=== PATIENT | male | born 1995 | race Caucasian/White ===

== ENCOUNTER 2018-02-10 17:11 | Emergency (ER) | payer OTHER ==
[2018-02-10] MEDS: IBUPROFEN 600 MG TAB PO (20:24)
[2018-02-10] MEDS: CEPHALEXIN 500 MG CAP PO (20:24)
== END 2018-02-10 20:52 | disposition home or self-care (01) ==
LOC: M ED 17:11
DX: S60.221A Contusion of right hand, initial encounter (principal); W19.XXXA Unspecified fall, initial encounter; Y92.410 Unspecified street and highway as the place of occurrence of the external cause; F17.200 Nicotine dependence, unspecified, uncomplicated
CPT/HCPCS: 73130

== ENCOUNTER 2018-10-27 13:21 | Emergency (ER) | payer OTHER ==
[~2018-10-27] VITALS: Ht 185.4 cm; Wt 77.3 kg
[2018-10-27 13:21] VITALS: BP 115/63
[~2018-10-27 13:21] MED LIST: AUGM875T28 PO
--- NOTE | 2018-10-27 13:56 | REP ---
LEFT RIB SERIES: Three views of the left ribs were performed. No fracture or bone lesion is seen. The left lung is clear with no evidence of pneumothorax. IMPRESSION: No evidence of left rib fracture. Electronically Signed by Vladimir Narvaez MD 10/27/2018 05:28 P
[2018-10-27] MEDS ORDERED: IBUP-1022 PO (14:06)
[2018-10-27] MEDS ORDERED: NORCOTAB PO (14:06)
== END 2018-10-27 14:29 | disposition home or self-care (01) ==
LOC: M ED 13:21
DX: S20.219A Contusion of unspecified front wall of thorax, initial encounter (principal); Y04.0XXA Assault by unarmed brawl or fight, initial encounter

== ENCOUNTER 2019-01-21 10:50 | Emergency (ER) | payer OTHER ==
[~2019-01-21] VITALS: Ht 188 cm; Wt 75.3 kg
[~2019-01-21 10:50] MED LIST changes: +HYDR-3715 PO; +IBUP-1022 PO
[2019-01-21] MEDS ORDERED: ONDANSETRON 4 MG ORAL DISINTEGRATING TAB (Q0162 PER 1MG) PO ONE (11:30)
--- NOTE | 2019-01-21 11:56 | REP ---
Head CT without contrast: History: Head injury. Neck pain. Comparison study: No comparison study. CT findings: Bone window settings demonstrate an intact bony calvarium. There is no evidence of skull fracture or incidental bony calvarial lesion. The visualized paranasal sinuses appear clear. No intraorbital abnormality is seen. On soft tissue window setting images; the lateral, third, and fourth ventricles are normal in size and position. Narvaez-white differentiation pattern is normal above and below the tentorium. There are is no evidence of intracranial hemorrhage. No mass, edema, infarction, or midline shift is seen. No extra-axial fluid collection is appreciated. Impression: Negative noncontrast head CT. Electronically Signed by Ba Luciano MD 01/21/2019 11:55 A
--- NOTE | 2019-01-21 12:07 | REP ---
CT study of the cervical spine without contrast: History: Head injury. Neck pain. Technique: Helical scanning is acquired and overlapping 2 mm high resolution axial images were generated and reviewed at bone and soft tissue window settings. Coronal and sagittal multiplanar re-formations images are generated. CT findings: There is some straightening of the normal cervical lordosis. Coronal multiplanar re-formation images demonstrate a dextroconvex curvature. 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 There is no evidence of cervical spine element fracture. No skull base fracture is seen. Cervical vertebral body heights are preserved. Alignment is normal. Facet joints are normally aligned bilaterally at each cervical level on multiplanar re-formations images. There is no evidence of intraspinal or paraspinal hematoma. No extra vertebral abnormality is seen. Impression: Negative CT study of the cervical spine without contrast. No fracture seen. Electronically Signed by Ba Luciano MD 01/21/2019 11:58 A
[2019-01-21] MEDS ORDERED: ONDA4TAB6 PO (12:31)
[2019-01-21 12:37] VITALS: BP 115/59
== END 2019-01-21 12:41 | disposition home or self-care (01) ==
LOC: M ED 10:50
DX: S16.1XXA Strain of muscle, fascia and tendon at neck level, initial encounter (principal); W22.8XXA Striking against or struck by other objects, initial encounter; Y92.89 Other specified places as the place of occurrence of the external cause; Y99.0 Civilian activity done for income or pay; F07.81 Postconcussional syndrome; F17.210 Nicotine dependence, cigarettes, uncomplicated
CPT/HCPCS: 70450; 72125; 99283; Q0162

== ENCOUNTER 2019-05-13 16:41 | Emergency (ER) | payer OTHER ==
[~2019-05-13] VITALS: Ht 190.5 cm; Wt 76.7 kg
[~2019-05-13 16:41] MED LIST changes: +ONDA4TAB6 PO; +PYRI1TAB5 PO
[2019-05-13 18:27] LABS: BASO # 0.1 10^3/uL (0.0-0.2); BASO % 0.9 % (0.0-1.0); EOS # 0.3 10^3/uL (0.0-0.50); EOS % 4.3 % (0.0-3.0); HEMATOCRIT 40.8 % (42.0-52.0); HEMOGLOBIN 13.7 g/dl (13.5-17.5); LYMPH # 2.3 10^3/uL (1.5-6.5); LYMPH % 39.9 % (24.0-44.0); MEAN CORPUSCULAR HEMOGLOBIN 29.7 pg (27.0-33.0); MEAN CORPUSCULAR HGB CONC 33.6 g/dl (32.0-36.5); MEAN CORPUSCULAR VOLUME 88.5 fl (80.0-96.0); MONO # 0.4 10^3/uL (0.0-0.8); MONO % 6.6 % (0.0-5.0); NEUTROPHILS # 2.8 10^3/uL (1.8-7.7); NEUTROPHILS % 48.1 % (36.0-66.0); PLATELET COUNT, AUTOMATED 211 10^3/uL (150-450); RED BLOOD COUNT 4.61 10^6/uL (4.30-6.10); WHITE BLOOD COUNT 5.9 10^3/uL (4.0-10.0)
--- NOTE | 2019-05-13 18:32 | REP ---
PA and lateral chest: There are no comparisons. The lung santoyo are hyperinflated but clear. Cardiac size is normal. The ju, mediastinum, skeletal structures are unremarkable. Impression: Hyperinflation, otherwise negative PA and lateral chest. Electronically Signed by Vladimir Olmstead MD 05/13/2019 06:23 P
[2019-05-13 19:01] VITALS: BP 116/69
--- NOTE | 2019-05-13 21:30 | ECGEPIP ---
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
== END 2019-05-13 19:04 | disposition home or self-care (01) ==
LOC: M ED 16:41
DX: R42 Dizziness and giddiness (principal); R00.1 Bradycardia, unspecified; R55 Syncope and collapse; Z86.79 Personal history of other diseases of the circulatory system; Z87.828 Personal history of other (healed) physical injury and trauma; F17.210 Nicotine dependence, cigarettes, uncomplicated

== ENCOUNTER 2020-02-21 10:58 | Emergency (ER) | payer OTHER ==
[~2020-02-21] VITALS: Ht 190.5 cm; Wt 71.4 kg
[2020-02-21] MEDS ORDERED: ACETAMINOPHEN 325 MG TAB PO ONE (11:45)
[2020-02-21 12:06] LABS: VENOUS BASE EXCESS -0.1 (-2.0-2.0); VENOUS HCO3 26.2 MEQ/L (23.0-27.0); VENOUS O2 SATURATION 74.1 % (60.0-80.0); VENOUS PARTIAL PRESSURE CO2 49.4 mmHg (38.0-50.0); VENOUS PARTIAL PRESSURE O2 42.8 mmHg (30.0-50.0); VENOUS PH 7.343 UNITS (7.330-7.430); VENOUS STANDARD HCO3 23.9 MEQ/L; VENOUS TOTAL CO2 27.8 MEQ/L (24.0-28.0)
[2020-02-21 12:11] LABS: BASO % 0.4 % (0.0-1.0); EOS # 0.1 10^3/uL (0.0-0.5); EOS % 1.9 % (0.0-3.0); HEMATOCRIT 36.9 % (42.0-52.0); HEMOGLOBIN 12.7 g/dl (13.5-17.5); LYMPH # 2.1 10^3/uL (1.5-5.0); LYMPH % 30.9 % (24.0-44.0); MEAN CORPUSCULAR HEMOGLOBIN 29.6 pg (27.0-33.0); MEAN CORPUSCULAR HGB CONC 34.4 g/dl (32.0-36.5); MONO # 0.5 10^3/uL (0.0-0.8); MONO % 7.6 % (0.0-5.0); NEUTROPHILS # 3.9 10^3/uL (1.5-8.5); NEUTROPHILS % 58.9 % (36.0-66.0); PLATELET COUNT, AUTOMATED 204 10^3/uL (150-450); RED BLOOD COUNT 4.29 10^6/uL (4.30-6.10); WHITE BLOOD COUNT 6.7 10^3/uL (4.0-10.0)
[2020-02-21 12:23] LABS: INR 1.1; PROTHROMBIN TIME 13.9 SECONDS (11.8-14.0)
[2020-02-21 12:24] LABS: PARTIAL THROMBOPLASTIN TIME 29.9 SECONDS (25.0-38.4)
[2020-02-21 12:39] LABS: CK-MB VALUE MASS 1.1 NG/ML (<3.6); MAGNESIUM LEVEL 2.2 MG/DL (1.8-2.4); MB/CK RELATIVE INDEX 1.75 (< OR =4); TROPONIN I 0.03 NG/ML (< 0.10)
[2020-02-21 13:00] VITALS: BP 91/55
--- NOTE | 2020-02-21 15:09 | REP ---
CT BRAIN WITHOUT CONTRAST: CT brain performed without IV contrast. Coronal reconstruction images are performed. Ventricles are normal in size and position with no midline shift or mass effect. Narvaez-white differentiation is well maintained. There is no acute intracranial hemorrhage or extra-axial fluid collection. Bone window examination is unremarkable. IMPRESSION: Negative noncontrast CT brain. Electronically Signed by Vladimir Narvaez MD 02/21/2020 11:03 P
--- NOTE | 2020-02-21 21:03 | ECGEPIP ---
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
== END 2020-02-21 13:14 | disposition home or self-care (01) ==
LOC: M ED 10:58
DX: R20.2 Paresthesia of skin (principal); R06.02 Shortness of breath